=== PATIENT | male | born 2000 | race Caucasian/White ===

== ENCOUNTER 2021-01-10 13:00 | Emergency (ER) | payer MEDICAID ==
[~2021-01-10] VITALS: Ht 170.2 cm; Wt 81.6 kg
[2021-01-10 13:04] VITALS: BP 125/71
--- NOTE | 2021-01-10 13:08 | NUR ---
PT TAKEN TO BED 3.
--- NOTE | 2021-01-10 13:25 | NUR ---
Dr. Powell is evaluating the patient at bedside.
--- NOTE | 2021-01-10 13:27 | NUR ---
20 Y/O M BIB SELF FROM HOME, PATIENT PRESENTS TO ED WITH DOG BITE THAT HAPPENED TODAY. UPON INSPECTION, PT HAS LAC ON R HAND NEAR 1ST DIGIT AND ON PALM OF HIS HAND. BLEEDING CONTROLLED, NO DISCHARGE OR EDEMA FROM SITE. DENIES N/V/D; SKIN IS PINK/WARM/DRY; AAOX4 WITH EVEN AND STEADY GAIT; LUNGS CLEAR BL; HR EVEN AND REGULAR; PT DENIES ANY FEVER, CP, SOB, OR COUGH AT THIS TIME; PATIENT STATES PAIN OF 1/10 AT THIS TIME; VSS; PATIENT POSITIONED FOR COMFORT; HOB ELEVATED; BEDRAILS UP X2; BED DOWN. ER MD MADE AWARE OF PT STATUS. PMH: DENIES NKA MED: NONE
[2021-01-10] MEDS ORDERED: BACITRACIN OINT 500 UNITS/GM PKT TP ONE (13:30)
--- NOTE | 2021-01-10 13:32 | NUR ---
Patient taken to x-ray via wheelchair by tech.
[2021-01-10] MEDS ORDERED: AMOX1TAB8 PO (13:35)
[2021-01-10] MEDS ORDERED: NAPR-54 PO (13:35)
--- NOTE | 2021-01-10 14:06 | NUR ---
BACITRACIN AND DERMABOND APPLIED TO RT HAND. GAUZE PAD AND GAUZE ROLL APPLIED.
[2021-01-10 14:07] VITALS: BP 125/71
--- NOTE | 2021-01-10 14:08 | NUR ---
Patient discharged with v/s stable. Written and verbal after care instructions given and explained. Patient alert, oriented and verbalized understanding of instructions. Ambulatory with steady gait. All questions addressed prior to discharge. ID band removed. Patient advised to follow up with PMD. Rx of AMOXICILLIN, NAPROXEN given. Patient educated on indication of medication including possible reaction and side effects. Opportunity to ask questions provided and answered.
== END 2021-01-10 14:05 | disposition home or self-care (01) ==
LOC: MED 13:00
DX: S61.451A Open bite of right hand, initial encounter (principal); Z23 Encounter for immunization; Z79.899 Other long term (current) drug therapy; W54.0XXA Bitten by dog, initial encounter; Y93.89 Activity, other specified; Y92.89 Other specified places as the place of occurrence of the external cause; Y99.8 Other external cause status
CPT/HCPCS: 12001; 73130; 90471; 90715; 99283